=== PATIENT | male | born 1975 | race Caucasian/White ===

== ENCOUNTER 2018-01-01 09:02 | Emergency (ER) | payer MEDICAID ==
[~2018-01-01] VITALS: Ht 172.7 cm; Wt 100.0 kg
[2018-01-01] MEDS ORDERED: METF500T3 MT (09:10)
[2018-01-01] MEDS ORDERED: FLUO10CA25 PO (09:10)
[2018-01-01] MEDS ORDERED: VIST25 PO (09:10)
[2018-01-01] MEDS ORDERED: DIVA-18 PO (09:10)
[2018-01-01] MEDS ORDERED: ALLO100T57 PO (09:10)
[2018-01-01] MEDS ORDERED: TRAZ-132 PO (09:10)
[2018-01-01] MEDS ORDERED: METF500T3 PO (09:10)
[2018-01-01] MEDS ORDERED: ATOR20TA PO (09:10)
[2018-01-01] MEDS ORDERED: KETOROLAC 60MG/2ML VIAL IM ONE (10:00)
[2018-01-01] MEDS ORDERED: MORPHINE SULFATE 10 MG/ML CPJ IM ONE (16:00)
[2018-01-01 16:03] VITALS: BP 136/86
== END 2018-01-01 16:28 | disposition home or self-care (01) ==
LOC: ER 09:38
DX: M10.9 Gout, unspecified (principal); E11.9 Type 2 diabetes mellitus without complications; I10 Essential (primary) hypertension; F99 Mental disorder, not otherwise specified; G40.909 Epilepsy, unspecified, not intractable, without status epilepticus; Z86.73 Personal history of transient ischemic attack (TIA), and cerebral infarction without residual deficits; Z88.0 Allergy status to penicillin; Z79.84 Long term (current) use of oral hypoglycemic drugs
CPT/HCPCS: 96372; 99284; J1885; J2270

== ENCOUNTER 2018-01-18 17:24 | Emergency (ER) | payer MEDICAID ==
[~2018-01-18] VITALS: Ht 170.2 cm; Wt 89.0 kg
[~2018-01-18 17:24] MED LIST: ALLO100T57 PO; ATOR20TA PO; DIVA-18 PO; FLUO10CA25 PO; METF500T3 MT; METF500T3 PO; TRAZ-132 PO; VIST25 PO
[2018-01-18 18:12] LABS: BASOPHILS % 1.2 % (0.0-2.0); EOSINOPHILS % 3.8 % (0.0-5.0); HEMATOCRIT. 41.2 % (42.0-52.0); HEMOGLOBIN. 14.2 g/dL (14.0-18.0); LYMPHOCYTES % 37.7 % (20.0-50.0); MEAN CORPUSCULAR HEMOGLOBIN 29.3 pg (28.0-32.0); MEAN CORPUSCULAR VOLUME 85.2 fL (80.0-94.0); MEAN PLATELET VOLUME 8.5 fl (7.4-10.4); MONOCYTES % 9.4 % (2.0-8.0); NEUTROPHILS % 47.9 % (40.0-76.0); PLATELET 333 x1000/uL (130-400); RED BLOOD CELL COUNT 4.83 mill/uL (4.7-6.1); RED CELL DISTRIBUTION WIDTH 12.9 % (11.6-14.6)
[2018-01-18 18:31] LABS: CHLORIDE 104 mEq/L (98-107)
[2018-01-18 20:15] VITALS: BP 118/73
== END 2018-01-18 20:16 | disposition home or self-care (01) ==
LOC: ER 17:24
DX: R55 Syncope and collapse (principal); S09.90XA Unspecified injury of head, initial encounter; R51 Headache; I10 Essential (primary) hypertension; S60.511A Abrasion of right hand, initial encounter; S40.812A Abrasion of left upper arm, initial encounter; S40.811A Abrasion of right upper arm, initial encounter; Y93.89 Activity, other specified; W01.0XXA Fall on same level from slipping, tripping and stumbling without subsequent striking against object, initial encounter; Y92.89 Other specified places as the place of occurrence of the external cause; E11.9 Type 2 diabetes mellitus without complications; G40.909 Epilepsy, unspecified, not intractable, without status epilepticus; I69.354 Hemiplegia and hemiparesis following cerebral infarction affecting left non-dominant side; I25.2 Old myocardial infarction; Z88.0 Allergy status to penicillin; Z79.899 Other long term (current) drug therapy; Z79.84 Long term (current) use of oral hypoglycemic drugs
CPT/HCPCS: 36415; 70450; 71045; 80053; 85025; 93005; 99285

== ENCOUNTER 2018-01-28 18:39 | Emergency (ER) | payer MEDICAID ==
[~2018-01-28] VITALS: Ht 172.7 cm; Wt 100.0 kg
[2018-01-28 19:26] LABS: BASOPHILS % 0.8 % (0.0-2.0); EOSINOPHILS % 3.4 % (0.0-5.0); HEMATOCRIT. 41.4 % (42.0-52.0); HEMOGLOBIN. 14.3 g/dL (14.0-18.0); LYMPHOCYTES % 32.7 % (20.0-50.0); MEAN CORPUSCULAR HEMOGLOBIN 29.2 pg (28.0-32.0); MEAN CORPUSCULAR VOLUME 84.8 fL (80.0-94.0); MEAN PLATELET VOLUME 9.1 fl (7.4-10.4); MONOCYTES % 7.2 % (2.0-8.0); NEUTROPHILS % 55.9 % (40.0-76.0); PLATELET 286 x1000/uL (130-400); RED BLOOD CELL COUNT 4.88 mill/uL (4.7-6.1); RED CELL DISTRIBUTION WIDTH 13.3 % (11.6-14.6)
[2018-01-28 19:31] LABS: CHLORIDE 104 mEq/L (98-107)
[2018-01-28 19:32] LABS: PARTIAL THROMBOPLASTIN TIME 26.1 sec (23.4-31.0); PROTHROMBIN TIME 10.7 sec (9.4-11.6)
[2018-01-28] MEDS ORDERED: ENOXAPARIN 40MG/0.4ML SYR SUBCUT SCH (23:30)
[2018-01-28] MEDS ORDERED: ONDANSETRON HCL 4MG/2ML VIAL IV PRN (23:30)
[2018-01-28] MEDS ORDERED: IPRATROPIUM/ALBUTEROL 0.5-3(2.5)MG/3ML NEB INH PRN (23:30)
[2018-01-28] MEDS ORDERED: CLONIDINE 0.1MG TABLET PO PRN (23:30)
[2018-01-28] MEDS ORDERED: ACETAMINOPHEN 325MG TABLET PO PRN (23:30)
[2018-01-28] MEDS ORDERED: MAGNESIUM/ALUMINUM HYDROXIDE/SIMETHICONE 30ML UDC PO PRN (23:30)
[2018-01-28] MEDS ORDERED: DOCUSATE SODIUM 100MG CAPSULE PO PRN (23:30)
[2018-01-29 00:34] LABS: CHLORIDE 105 mEq/L (98-107)
[2018-01-29 00:49] LABS: VALPROIC ACID < 3.0 ug/mL (50-100)
[2018-01-29 05:24] LABS: BASOPHILS % 0.7 % (0.0-2.0); EOSINOPHILS % 4.7 % (0.0-5.0); HEMATOCRIT. 40.2 % (42.0-52.0); HEMOGLOBIN. 13.8 g/dL (14.0-18.0); LYMPHOCYTES % 41.7 % (20.0-50.0); MEAN CORPUSCULAR HEMOGLOBIN 29.3 pg (28.0-32.0); MEAN CORPUSCULAR VOLUME 85.2 fL (80.0-94.0); MEAN PLATELET VOLUME 8.8 fl (7.4-10.4); MONOCYTES % 9.7 % (2.0-8.0); NEUTROPHILS % 43.2 % (40.0-76.0); PLATELET 264 x1000/uL (130-400); RED BLOOD CELL COUNT 4.72 mill/uL (4.7-6.1); RED CELL DISTRIBUTION WIDTH 13.5 % (11.6-14.6)
[2018-01-29 05:35] LABS: LDL CHOLESTEROL 134 mg/dL (5-100)
[2018-01-29 05:37] LABS: CREATINE KINASE 54 IU/L (39-308); HDL CHOLESTEROL 36 mg/dL (40-59)
[2018-01-29 05:39] LABS: CREATINE KINASE MB FRACTION < 0.5 ng/mL (0.5-3.6)
[2018-01-29] MEDS ORDERED: ASPIRIN 81MG EC TABLET PO SCH (09:00)
[2018-01-29 09:10] VITALS: BP 134/76
== END 2018-01-29 10:01 | disposition left against medical advice (07) ==
LOC: ER 18:39 → CANRESERV 01-29 02:25 → ENRESERV 01-29 02:25 → ER 01-29 10:01 → CANBEDREQ 01-29 10:51
DX: R55 Syncope and collapse (principal); I69.398 Other sequelae of cerebral infarction; G40.909 Epilepsy, unspecified, not intractable, without status epilepticus; R94.31 Abnormal electrocardiogram [ECG] [EKG]; E11.9 Type 2 diabetes mellitus without complications; I10 Essential (primary) hypertension; Z88.0 Allergy status to penicillin; Z79.899 Other long term (current) drug therapy; I25.2 Old myocardial infarction
CPT/HCPCS: 36415; 70450; 71045; 80048; 80053; 80061; 80165; 82550; 82553; 83036; 83690; 83735; 84443; 84484; 85025; 85610; 85730; 93005; 93970; 99285

== ENCOUNTER 2018-02-12 11:25 | Emergency (ER) | payer MEDICAID ==
[~2018-02-12] VITALS: Ht 170.2 cm; Wt 90.0 kg
[2018-02-12 11:34] VITALS: BP 123/80
[2018-02-12] MEDS ORDERED: ACETAMINOPHEN WITH CODEINE 300/30MG TABLET PO ONE (13:30)
[2018-02-12 14:32] LABS: CHLORIDE 103 mEq/L (98-107)
[2018-02-12 14:33] LABS: BASOPHILS % 0.5 % (0.0-2.0); HEMATOCRIT. 41.1 % (42.0-52.0); HEMOGLOBIN. 13.9 g/dL (14.0-18.0); LYMPHOCYTES % 16.6 % (20.0-50.0); MEAN CORPUSCULAR HEMOGLOBIN 29.1 pg (28.0-32.0); MEAN PLATELET VOLUME 9.2 fl (7.4-10.4); MONOCYTES % 8.4 % (2.0-8.0); NEUTROPHILS % 73.5 % (40.0-76.0); PLATELET 350 x1000/uL (130-400); RED BLOOD CELL COUNT 4.78 mill/uL (4.7-6.1); RED CELL DISTRIBUTION WIDTH 13.4 % (11.6-14.6)
[2018-02-12] MEDS ORDERED: KETOROLAC 60MG/2ML VIAL IM ONE (16:30)
== END 2018-02-12 19:17 | disposition home or self-care (01) ==
LOC: ER 11:25
DX: R55 Syncope and collapse (principal); M25.561 Pain in right knee; G40.909 Epilepsy, unspecified, not intractable, without status epilepticus; I69.359 Hemiplegia and hemiparesis following cerebral infarction affecting unspecified side; M10.9 Gout, unspecified; D72.829 Elevated white blood cell count, unspecified; R94.31 Abnormal electrocardiogram [ECG] [EKG]; Z88.0 Allergy status to penicillin; W01.0XXA Fall on same level from slipping, tripping and stumbling without subsequent striking against object, initial encounter; Y93.89 Activity, other specified; Y92.89 Other specified places as the place of occurrence of the external cause
CPT/HCPCS: 36415; 73562; 80053; 84550; 85025; 93005; 99285; J1885

== ENCOUNTER 2018-07-01 15:51 | Emergency (ER) | payer MEDICAID ==
[~2018-07-01] VITALS: Ht 172.7 cm; Wt 91.0 kg
[~2018-07-01 15:51] MED LIST changes: -TRAZ-132 PO; +TRAZ-213 PO
[2018-07-01] MEDS ORDERED: SODIUM CHLORIDE 0.9% 1,000 ML IV ONE (16:22)
[2018-07-01] MEDS ORDERED: ONDANSETRON HCL 4MG/2ML INJ IV STA (16:22)
[2018-07-01] MEDS ORDERED: FENTANYL CITRATE/PF 50MCG/ML 2ML VIAL IV ONE (16:30)
[2018-07-01 17:16] LABS: BASOPHILS % 0.6 % (0.0-2.0); EOSINOPHILS % 1.7 % (0.0-5.0); HEMOGLOBIN. 13.4 g/dL (14.0-18.0); LYMPHOCYTES % 23.1 % (20.0-50.0); MEAN CORPUSCULAR HEMOGLOBIN 29.6 pg (28.0-32.0); MEAN CORPUSCULAR VOLUME 86.4 fL (80.0-94.0); MEAN PLATELET VOLUME 9.1 fl (7.4-10.4); MONOCYTES % 9.6 % (2.0-8.0); PLATELET 283 x1000/uL (130-400); RED BLOOD CELL COUNT 4.52 mill/uL (4.7-6.1); RED CELL DISTRIBUTION WIDTH 13.4 % (11.6-14.6)
[2018-07-01 17:22] LABS: CHLORIDE 105 mEq/L (98-107)
[2018-07-01 17:27] LABS: ETHANOL BLOOD < 10 mg/dL
[2018-07-01 17:33] LABS: VALPROIC ACID < 3.0 ug/mL (50-100)
[2018-07-01] MEDS ORDERED: DIVALPROEX SODIUM 250MG ER TABLET PO ONE (17:45)
[2018-07-01] MEDS ORDERED: IBUPROFEN 800MG TABLET PO ONE (18:15)
[2018-07-01 19:09] VITALS: BP 146/86
== END 2018-07-01 19:10 | disposition home or self-care (01) ==
LOC: ER 15:51
DX: S63.502A Unspecified sprain of left wrist, initial encounter (principal); G40.89 Other seizures; F32.9 Major depressive disorder, single episode, unspecified; I11.9 Hypertensive heart disease without heart failure; I25.2 Old myocardial infarction; F20.9 Schizophrenia, unspecified; Z79.899 Other long term (current) drug therapy; Z88.0 Allergy status to penicillin; Z79.84 Long term (current) use of oral hypoglycemic drugs; Z86.73 Personal history of transient ischemic attack (TIA), and cerebral infarction without residual deficits; Z91.19 Patient's noncompliance with other medical treatment and regimen; W18.39XA Other fall on same level, initial encounter; Y93.89 Activity, other specified; Y92.89 Other specified places as the place of occurrence of the external cause; Y99.8 Other external cause status
CPT/HCPCS: 29125; 36415; 73110; 73130; 80048; 80165; 85025; 96361; 96374; 96375; 99284; G0482; J2405; J3010; J7030

== ENCOUNTER 2019-04-15 14:43 | Emergency (ER) | payer MEDICAID ==
[~2019-04-15] VITALS: Ht 177.8 cm; Wt 91.8 kg
[2019-04-15 15:29] LABS: BASOPHILS % 0.5 % (0.0-2.0); EOSINOPHILS % 2.9 % (0.0-5.0); HEMATOCRIT. 40.5 % (42.0-52.0); HEMOGLOBIN. 13.6 g/dL (14.0-18.0); LYMPHOCYTES % 34.5 % (20.0-50.0); MEAN CORPUSCULAR HEMOGLOBIN 27.9 pg (28.0-32.0); MEAN CORPUSCULAR VOLUME 83.3 fL (80.0-94.0); MEAN PLATELET VOLUME 8.7 fl (7.4-10.4); NEUTROPHILS % 51.1 % (40.0-76.0); PLATELET 294 x1000/uL (130-400); RED BLOOD CELL COUNT 4.86 mill/uL (4.7-6.1); RED CELL DISTRIBUTION WIDTH 15.4 % (11.6-14.6)
[2019-04-15 15:33] LABS: CHLORIDE 106 mEq/L (98-107); PROTHROMBIN TIME 10.4 sec (9.6-11.0)
[2019-04-15 15:38] LABS: ETHANOL BLOOD < 10 mg/dL
[2019-04-15 15:39] LABS: LDL CHOLESTEROL 154 mg/dL (5-100)
[2019-04-15] MEDS ORDERED: ALTEPLASE IV NR (16:15)
[2019-04-15] MEDS ORDERED: *NO ASPIRIN X 24 HOURS XX SCH (16:15)
[2019-04-15] MEDS ORDERED: ALTEPLASE 2MG/VIAL ITC NR (16:15)
[2019-04-15] MEDS ORDERED: WATER FOR INJECTION STERILE IV NR (16:15)
[2019-04-15 17:05] VITALS: BP 150/90
== END 2019-04-15 17:39 | disposition short-term general hospital (02) ==
LOC: ER 14:43 → CANBEDREQ 18:20
DX: I63.9 Cerebral infarction, unspecified (principal); R55 Syncope and collapse; R07.89 Other chest pain; G81.94 Hemiplegia, unspecified affecting left nondominant side; F32.9 Major depressive disorder, single episode, unspecified; I11.9 Hypertensive heart disease without heart failure; F20.9 Schizophrenia, unspecified; I25.2 Old myocardial infarction; F15.10 Other stimulant abuse, uncomplicated; Z86.73 Personal history of transient ischemic attack (TIA), and cerebral infarction without residual deficits; Z88.0 Allergy status to penicillin; Z79.899 Other long term (current) drug therapy
CPT/HCPCS: 36415; 37195; 70450; 71045; 80053; 80320; 82962; 83721; 84484; 85025; 85610; 93005; 99291; J2997; G0480